=== PATIENT | female | born 1960 | race Caucasian/White ===

== ENCOUNTER → 2016-07-26 14:39 | Outpatient (CLI) | payer MEDICARE ==
[2014-06-06 13:04] VITALS: BMI 25.1
[~2016-07-26 14:39] MED LIST: ACETAMINOPHEN500 M1 PO; BACTRIM DS TABL1 TAB PO; DESYREL50 MG PO; EFFEXOR25 MG PO; ESTRACE1 MG PO; FLEXERIL10 MG PO; LIPITOR20 MG PO; LOPRESSOR25 MG PO; NEURONTIN 300300 MG PO; NORCO 7.5-3251 EACH PO; VALTREX500 MG PO; VISTARIL25 MG PO
== END | disposition home or self-care (01) ==
LOC: D.RAD 14:39
DX: M25.521 Pain in right elbow (principal)

== ENCOUNTER → 2016-08-14 16:42 | Outpatient (CLI) | payer MEDICARE ==
[2014-06-06 13:04] VITALS: BMI 25.1
== END | disposition home or self-care (01) ==
LOC: D.MAMMO 13:15
DX: Z12.31 Encounter for screening mammogram for malignant neoplasm of breast (principal)

== ENCOUNTER → 2017-02-03 14:54 | Outpatient (CLI) | payer MEDICARE ==
[2014-06-06 13:04] VITALS: BMI 25.1
== END | disposition home or self-care (01) ==
LOC: D.MRI 13:30
DX: M25.562 Pain in left knee (principal)

== ENCOUNTER → 2017-12-16 08:42 | Outpatient (CLI) | payer MEDICARE ==
[2014-06-06 13:04] VITALS: BMI 25.1
== END | disposition home or self-care (01) ==
LOC: D.MRI 08:42
DX: M77.11 Lateral epicondylitis, right elbow (principal)

== ENCOUNTER → 2018-04-10 13:37 | Outpatient (CLI) | payer MEDICARE ==
[2014-06-06 13:04] VITALS: BMI 25.1
== END | disposition home or self-care (01) ==
LOC: D.RAD 04-09 10:00
DX: R05 Cough (principal)

== ENCOUNTER → 2018-10-23 10:44 | Outpatient (CLI) | payer OTHER ==
[2014-06-06 13:04] VITALS: BMI 25.1
== END | disposition home or self-care (01) ==
LOC: D.MRI 10:44
PROVIDERS: ATTEND Nurse Practitioner Family
DX: M17.12 Unilateral primary osteoarthritis, left knee (principal)

== ENCOUNTER → 2019-08-02 08:09 | Outpatient (CLI) | payer OTHER ==
[2014-06-06 13:04] VITALS: BMI 25.1
--- NOTE | 2019-08-05 16:48 | ST ---
PATIENT:KAVYA TOWNSEND MEDICAL RECORD: [id number] SEX: F LOCATION:[facility] ORDER #: ADMISSION DATE: 08/02/19 AGE OF PATIENT: 59 REFERRING PHYSICIAN: INTERPRETING PHYSICIAN: MONICO JOHN MD DATE OF SERVICE: 08/02/2019 PROCEDURE: Nuclear stress test. INDICATION: Angina, shortness of breath, hypertension. She was exercised on standard Lexiscan protocol with 25 mCi of sestamibi injected at peak stress, 8 mCi used previously for rest images. FINDINGS: Gated SPECT reveals preserved ejection fraction at 73% with good wall motioning and thickening and brightening throughout all segments. SPECT imaging: Cardiolite was used as myocardial perfusion agent. There is reversibility anteriorly and apically. This includes the basal, mid, apical anterior segments as well as the apex itself. The degree of reversibility is mild. The amount of myocardium involved is moderate. OVERALL IMPRESSION: This is an intermediate risk abnormal nuclear stress test. Reversible ischemia anteriorly and apically suggestive of hemodynamically significant coronary artery disease. TRANSINT:[id number] Voice Confirmation ID: [id number] DOCUMENT ID: [id number] MONICO JOHN MD at 1648 CC: MEGHANN WILLIAMSON DO [id number] DICTATION DATE: 08/03/19 0901 [place]WING [place] BALER: 08/04/19 0653 [facility] CLI 08/02/19 [id number] [place] [address]
--- NOTE | 2019-08-05 16:48 | EC ---
PATIENT:KAVYA TOWNSEND DATE OF SERVICE: 08/02/19 SEX: F MEDICAL RECORD: [id number] DATE OF : 64 LOCATION:[facility] AGE OF PATIENT: 59 ADMISSION DATE: 08/02/19 REFERRING PHYSICIAN: INTERPRETING PHYSICIAN: MONICO ORELLANA MD ECHOCARDIOGRAM REPORT ECHO CHARGES 4 ECHO COMPLETE Date: 08/02/19 CLINICAL DIAGNOSIS: HEART MURMUR//ANGINA ECHOCARDIOGRAPHIC MEASUREMENTS (adult normal given) AC root (d.<3.7cm) 3.4 cm LV Septum d (<1.2 cm> 1.2 cm Valve Excursion 1.6 cm LV Septum (systole) 1.4 cm Left Atria (s.<4.0cm> 3.7 cm LVPW d(<1.2cm) 1.6 cm RV (d.<2.3cm) 3.2 cm LVPW (sytole) 1.8 cm LV diastole(<5.6CM) 5.0 cm MV E-F(>70mm/sec) cm LV systole 3.5 cm LVOT Diameter 1.6 cm MV exc.(>10mm) 1.8 cm Est.ejection fraction (50-75%) % DOPPLER: LVIT cm/sec A 86.0 cm/sec E 64.0 cm/sec LA cm/sec RVSP 27 mmHg LVOT 97 cm/sec AOP1/2T m/s Asc. Ao 127 cm/sec RVOT 77 cm/sec RA cm/sec PA 110 cm/sec AV Gradient Peak 6.43 mmHg AV Mean 3.15 mmHg AV Area 1.6 cm MV Gradient Peak 2.80 mmHg MV Mean 1.21 mmHg MV Area cm COMMENTS: Clinical Dermatologist: 2 DYLON ESPITIA Cleaning Custodian: 1 Dr. Orellana TAPE# PACS Pericardial Effusion N DATE OF SERVICE: FINDINGS: 1. Left ventricular chamber size is within normal limits. Left ventricular systolic function is normal at 60%. 2. Left atrium, right atrium, and right ventricle chamber sizes are within normal limits. 3. Valvular structures have normal structure and motion. 4. Doppler interrogation reveals mild mitral regurgitation, mild tricuspid regurgitation, no other valvular insufficiency or stenosis. Pulmonary systolic ECHOCARDIOGRAM REPORT [id number] KAVYA TOWNSEND pressure estimated at 27 mmHg. 5. No evidence of pericardial effusion or left ventricular thrombus. TRANSINT:[id number] Voice Confirmation ID: [id number] DOCUMENT ID: [id number] MONICO ORELLANA MD at 1648 CC: [id number] DICTATION DATE: 08/02/19 1335 [employer] ADMINISTRATOR: 08/02/19 2309 [facility] CLI 08/02/19 [id number] [place] [id number]
== END | disposition home or self-care (01) ==
LOC: D.HCCARDIO 08:09 → D.HCCECHO 09:00
PROVIDERS: ATTEND Internal Medicine Interventional Cardiology
DX: R01.1 Cardiac murmur, unspecified (principal); I20.9 Angina pectoris, unspecified

== ENCOUNTER 2019-08-11 08:10 | Outpatient (CLI) | payer OTHER ==
[~2019-08-11] VITALS: Ht 162.6 cm; Wt 60.5 kg
--- NOTE | ~2019-08-11 | OP ---
PATIENT NAME: KAVYA TOWNSEND MEDICAL RECORD: [id number] :64 LOCATION:[facility] ADMISSION DATE: SURGEON: MONICO JOHN MD DATE OF OPERATION: 08/11/2019 PROCEDURES: 1. PTCA stent LAD. 2. Left heart catheterization. 3. Selective coronary angiography. 4. Left ventriculogram. 5. Aortofemoral runoff. 6. Abdominal aortography. INDICATION: Angina, coronary artery disease, leg pain compatible with claudication. PROCEDURE IN DETAIL: After informed consent was obtained and after a detailed description of risks, benefits as well as alternative therapies, the patient elected to proceed with angiogram and angioplasty. The left femoral area was prepped and draped in normal sterile fashion. Left femoral artery was cannulated via modified Seldinger technique with placement of 5-Dominican sheath. All catheters exchanged through this sheath. FINDINGS: Left ventriculogram was performed in standard 30-degree [place] view, reveals good cardiac wall motion throughout all segments. Overall ejection fraction estimated at 60%. Abdominal aortography was performed. The catheter was pulled down for aortofemoral runoff. Abdominal aortography reveals no significant abdominal aortic disease, no dissection or aneurysmal formation. RIGHT LEG: A. Iliac: The common internal and external iliacs have mild irregularities, but no flow-limiting stenosis. B. Femoral system: The common superficial and deep femoral have mild irregularities, but no flow-limiting stenosis. C. Popliteal and infrapopliteal vessels are widely patent with good 3-vessel runoff to the foot. LEFT LEG: A. Iliac: The common internal and external iliacs have mild irregularities, but no flow-limiting stenosis. B. Femoral system: The common superficial and deep femoral have mild irregularities, but no flow-limiting stenosis. C. Popliteal and infrapopliteal vessels are widely patent with good 3-vessel runoff to the foot. SELECTIVE CORONARY ANGIOGRAPHY: 1. Left main is with no significant angiographic disease. 2. Left anterior descending has 75-80% stenosis in the mid vessel and that correlates with perfusion defect from nuclear stress testing. 3. Left circumflex has mild irregularities, but no flow-limiting stenosis. 4. Right coronary has mild irregularities, but no flow-limiting stenosis. PTCA STENT OF THE LAD: The stent used was a 2.75 x 14 mm Integrity. Result was 0% residual stenosis. OPERATIVE REPORT [id number] KAVYA TOWNSEND OVERALL IMPRESSION: Successful percutaneous transluminal coronary angioplasty stent of the left anterior descending going from 75% to 80% initial stenosis, which correlates with the defect on nuclear stress test to 0% residual stenosis. TRANSINT:[id number] Voice Confirmation ID: [id number] DOCUMENT ID: [id number] MONICO JOHN MD CC: [id number] DICTATION DATE: 08/11/19 1059 [employer] INSPECTOR: 08/11/19 1318 [facility] [address] [id number]
--- NOTE | ~2019-08-11 | HEMODYNAMI ---
PATIENT:KAVYA TOWNSEND MEDICAL RECORD: [id number] : 64 LOCATION:[facility] ADMISSION DATE: 08/11/19 Generatedon:08/11/201910:57 Patient name: KAVYA TOWNSEND Patient #: [id number] SSN: [id number] : 1960 Date of study: 08/11/2019 Page: Of Hemodynamic Procedure Report Patient Data Patient Demographics Procedure consent was obtained First Name: KAVYA Gender: Female Last Name: CARY : 1960 [facility] Initial: J Age: 59 year(s) Patient #: [id number] Race: SSN: [id number] Additional ID: [id number] Contact details [address]: [address] [place] [address] State: [place] City: [place] Zip code: [address] Admission Admission Data Admission Date: 08/11/2019 Admission Time: 8:10 Arrival Date: 08/11/2019 Arrival Time: 10:00 Insurance Payor: Private health insurance [facility] #: [id number] Lab Results Lab Result Date: 08/11/2019 Lab Result Time: 0:00 Biochemistry Name Units Result Min Max BUN mg/dl 11 --(-*--)-- 7 18 Creatinine mg/dl 0.7 --(*---)-- 0.6 1.3 eGFR ml/min 90 --(*---)-- 90 120 NONAFRICAN CBC Name Units Result Min Max Hemoglobin g/dl 13 -*(----)-- 13.5 17.5 Procedure Procedure Types Cath Procedure Diagnostic Procedure C [facility] w/Coronaries Sedation Charges Moderate Sedation up to 15 minutes PCI Procedure Coronary Stent Coronary Stent Initial Hemochron ACT Test Peripheral Cath Diagnostic Procedure [employer]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 Procedures AFRO (Diagnostic) Procedure Description Procedure Date Procedure Date: 08/11/2019 Procedure Start Time: 10:40 Procedure End Time: 10:52 Procedure Staff Name Function Noah Orellana MD Performing Physician Padmini Madsen RT Monitor Jyothi Miller RT Scrub Steven Montes RN Nurse Procedure Data Cath Procedure Fluoroscopy Diagnostic fluoroscopy Total fluoroscopy Time: 2.5 time: 2.5 min min Diagnostic fluoroscopy Total fluoroscopy dose: 304 dose: 304 mGy mGy Contrast Material Contrast Material Type Amount (ml) Isovue 300 102 Entry Location Entry Primary Successful Side Size Upsize Upsize Entry Closure Succes sful Closure Location (Fr) 1 (Fr) 2 (Fr) Remarks Device Remarks Femoral Left 5 Fr Exoseal artery Estimated blood loss: 5 ml Diagnostic catheters Device Type Used For End Catheter Placement MULTIPACK Pigtail 5 Fr Multi-vessel catheter Angiography MULTIPACK JL 4.0 5Fr Left Coronary catheter Angiography MULTIPACK 3DRC 5Fr Right Coronary catheter Angiography Procedure Complications No complications Procedure Medications Medication Administration Route Dosage Oxygen etCO2 Nasal cannula 2 l/min Lidocaine 2% added to field 20 Heparin Flush Bag added to field 2 bags (1000units/500ml NS) 0.9% NaCl I.V. 100 ml/hr Versed I.V. 2 mg Fentanyl I.V. 100 mcg Versed I.V. 2 mg Fentanyl I.V. 100 mcg Heparin Bolus I.V. 4000 units Integrilin (Bolus I.V. 5.6 ml 2mg/ml) Nitroglycerin IC/IA I.C. 100 mcg Versed I.V. 2 mg Fentanyl I.V. 100 mcg Versed I.V. 1 mg Plavix P.O. 600 mg Hemodynamics Rest HGB: 13 (g/dl) Heart Rate: 82 (bpm) Pressure Samples Time Site Value (mmHg) Purpose Heart Use Rate(bpm) 10:41 LV 42/-2,0 Snapshot 78 Snapshots Pre Cath Intra NCS Post Cath Vital Signs Time Heart Resp SPO2 etCO2 NIBP (mmHg) Rhythm Pain Sedation Rate (ipm) (%) (mmHg) Status Level (bpm) 10:16:46 83 16 97 0 168/108(145) NSR 0 (11) 10(A) , No pain 10:20:58 79 16 98 15 161/102(142) NSR 0 (11) 10(A) , No pain 10:25:08 84 34 96 30 166/95(136) NSR 0 (11) 10(A) , No pain 10:29:20 81 19 97 29.9 158/97(131) NSR 0 (11) 10(A) , No pain 10:33:32 82 14 95 26.2 148/106(121) NSR 0 (11) 10(A) , No pain 10:37:39 81 19 97 27.7 147/86(125) NSR 0 (11) 10(A) , No pain 10:41:47 78 15 93 9.7 146/83(104) NSR 0 (11) 10(A) , No pain 10:45:53 90 16 96 0.7 140/92(111) NSR 0 (11) 10(A) , No pain 10:49:55 92 18 97 33 153/99(133) NSR 0 (11) 10(A) , No pain Medications Time Medication Route Dose Verified Delivered Reason Notes Effectiveness by by 10:17:31 Oxygen etCO2 2 Noah Rajwinderie used for Nasal l/min Esteban Montes RN procedure cannula 10:17:38 Lidocaine 2% added 20ml Noah Zamora for local to vial Esteban Orellana MD anesthetic field 10:18:58 Heparin Flush added 2 Noah Noah used for Bag to bags Esteban Orellana MD procedure (1000units/500ml field NS) 10:19:06 0.9% NaCl I.V. 100 Noah Harris Per physician ml/hr Esteban Montes RN 10:40:07 Versed I.V. 2 mg Noah Purdyie for sedation Esteban Montes RN 10:40:13 Fentanyl I.V. 100 Noah Buffie for sedation mcg Esteban Montes RN 10:43:56 Versed I.V. 2 mg Noah Purdyie for sedation Esteban Montes RN 10:44:00 Fentanyl I.V. 100 Noah Purdyie for sedation mcg Esteban Montes RN 10:46:41 Heparin Bolus I.V. 4000 Noah Harris for verif ied units Esteban Montes RN anticoagulation with dr orellana 10:47:18 Integrilin I.V. 5.6 Noah Harris for waste d (Bolus 2mg/ml) ml Esteban Montes RN antiplatelet 4.4 ml therapy of vial 10:49:13 Versed I.V. 2 mg Noah Purdyie for sedation Esteban Montes RN 10:49:16 Fentanyl I.V. 100 Noah Purdyie for sedation mcg Esteban Montes RN 10:50:31 Nitroglycerin I.C. 100 Noah Harris for IC/IA mcg Esteban Montes RN vasodilation 10:53:37 Versed I.V. 1 mg Noah Harris for sedation Esteban Montes RN 10:55:26 Plavix P.O. 600 Noah Harris for mg Esteban Montes RN antiplatelet therapy Procedure Log Time Note 10:00:21 Jyothi Miller RT(R) sent for patient. Start room use. 10:07:10 Diagnostic Cath Status : Elective 10:08:24 Informed consent obtained and on chart 10:10:20 Arrival Date: 08/11/2019 10:00:00 AM 10:10:41 Insurance Payor : Private health insurance 10:15:16 Lab Result : Hemoglobin 13 g/dl 10:15:16 Lab Result : eGFR NONAFRICAN 90 ml/min 10:15:16 Lab Result : BUN 11 mg/dl 10:15:16 Lab Result : Creatinine 0.7 mg/dl 10:15:29 Time tracking: Regular hours (M-F 7:00 - 5:00) 10:15:33 Plan of Care:Hemodynamics will remain stable., Cardiac rhythm will remain stable., Comfort level will be maintained., Respiratory function will remain adequate., Patient/ family verbilizes understanding of procedure., Procedure tolerated without complication., Recovers from procedure without complications.. 10:15:39 Patient received from Pre/Post Procedure Room to CCL 2 Alert and oriented. Tansferred to table in Supine position. 10:15:40 Warm blankets applied, and george hugger turned on for patient comfort. 10:15:40 Correct patient and procedure confirmed by team. 10:15:41 ECG and BP/O2 sat monitors applied to patient. 10:15:43 Vital chart was started 10:15:45 Baseline sample Acquired. 10:15:47 Rhythm: sinus rhythm 10:15:49 Full Disclosure recording started 10:15:52 H&P Date Dictated: 08/11/2019 Within 30 days and on chart., H&P Addendum completed by physician on day of procedure. (MUST COMPLETE FOR ALL OUTPATIENTS). 10:15:53 Pre-procedure instructions explained to patient. 10:15:54 Pre-op teaching completed and patient verbalized understanding. 10:15:56 Family in waiting room. 10:15:58 Patient NPO since Midnight. 10:15:59 Is the patient allergic to Iodine/contrast media? Yes. 10:16:00 Was the patient premedicated? Yes 10:17:31 Oxygen 2 l/min etCO2 Nasal cannula was administered by Steven Montes RN; used for procedure; Verbal order read back and verified. 10:17:38 Lidocaine 2% 20ml vial added to field was administered by Noah Orellana MD; for local anesthetic; Verbal order read back and verified. 10:17:42 Patient diabetic? No. 10:18:27 Is patient on blood thinner?No 10:18:35 Previous problem with sedation/anesthesia? No ? 10:18:36 Snore? Yes 10:18:37 Sleep apnea? No 10:18:38 Deviated septum? No 10:18:38 Opens mouth fully? Yes 10:18:40 Sticks out tongue? Yes 10:18:48 Airway obstruction? Yes EMPHYSEMA 10:18:51 Dentures? No ? 10:18:54 Pre procedure: right dorsailis pedis pulse 2+ Normal; easily identifiable; not easily obliterated 10:18:57 Pre procedure: left dorsailis pedis pulse 2+ Normal; easily identifiable; not easily obliterated 10:18:58 Heparin Flush Bag (1000units/500ml NS) 2 bags added to field was administered by Noah Orellana MD; used for procedure; Verbal order read back and verified. 10:19:01 Patient pain scale 0/10 ?. 10:19:06 0.9% NaCl 100 ml/hr I.V. was administered by Steven Montes RN; Per physician; Verbal order read back and verified. 10:19:08 IV patent on arrival in left forearm with 0.9% NaCl at [facility]. 10:19:11 Lab results completed and on chart. 10:19:24 Stress Test: yes; abnormal ANTEROAPICAL 10:21:34 Risk of Mortality: 0.2 10:21:37 Risk of blood transfusion: 3.1 10:21:40 Risk of JOSE ELIAS: 0.9 10:21:45 Bilateral groins area was prepped with chlora-prep and draped in sterile fashion 10:21:45 Alarms reviewed by R. N. 10:21:46 Sharps counted by scrub and verified by R.N. 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 10:22:04 Bag Decanter (2002S) opened to sterile field. 10:22:04 Medline Cath Pack ([id number]) opened to sterile field. 10:22:05 ACIST Hand Control (61243) opened to sterile field. 10:22:06 ACIST Manifold (84470) opened to sterile field. 10:22:06 DIAGNOSTIC Multipack 5Fr catheter set ([id number]) opened to sterile field. 10:22:07 Tegaderm 4 x 4 (1626W) opened to sterile field. 10:22:08 SHEATH 5FR [employer] (BOM544) opened to sterile field. 10:22:08 EMERALD Guide Wire (443-663) opened to sterile field. 10:31:49 1) 90+ Normal kidney functon but urine findings or structural abnormalities or genetic trait point to kidney disease. 10:31:52 Maximum allowable contrast dose (3.7 X eGFR X 0.75)249 ml. 10:39:42 Physician arrived 10:39:42 --------ALL STOP TIME OUT------ 10:39:43 Final Timeout: patient, procedure, and site verified with staff and physician. All members of the team are in agreement. 10:39:45 Bilateral groins site verified by team. 10:39:48 Fire Safety Assessment: A--An alcohol-based skin anteseptic being used preoperatively., C--Open oxygen or nitrous oxide is being used., D--An ESU, laser, or fiber-optic light is being used. 10:39:52 Physical assessment completed. ASA score P 2 - A patient with mild systemic disease as per Noah Orellana MD. 10:39:59 Sedation plan: IV Moderate Sedation Medication:Versed, Fentanyl 10:40:07 Versed 2 mg I.V. was administered by Steven Montes RN; for sedation; Verbal order read back and verified. 10:40:07 Procedure started. 10:40:11 Local anesthetic to left femerol artery with Lidocaine 2% by Noah Orellana MD.INITIAL ACCESS ONLY 10:40:13 Fentanyl 100 mcg I.V. was administered by Steven Montes RN; for sedation; Verbal order read back and verified. 10:40:18 A 5 Fr sheath was inserted into the Left Femoral artery 10:40:25 A MULTIPACK Pigtail 5 Fr catheter was advanced over the wire and used for Multi-vessel Angiography. 10:41:45 LV hemodynamics recorded. 10:41:47 LV gram done using SMALLWOOD 10:41:51 Injector settings: Ml/sec: 5, Volume: 15, 10:41:56 EF : 60 % 10:42:19 Abdominal angiogram w/ runoff was performed. 10:42:26 Injector settings: Ml/sec: 10, Volume: 20, 10:42:56 Catheter removed. 10:43:04 A MULTIPACK JL 4.0 5Fr catheter was advanced over the wire and used for Left Coronary Angiography. 10:43:50 LCA angiography performed. 10:43:53 Injector settings: Ml/sec: 3, Volume: 6, 10:43:56 Versed 2 mg I.V. was administered by Steven Montes RN; for sedation; Verbal order read back and verified. 10:44:00 Fentanyl 100 mcg I.V. was administered by Setven Montes RN; for sedation; Verbal order read back and verified. 10:44:34 Catheter removed. 10:44:42 A MULTIPACK 3DRC 5Fr catheter was advanced over the wire and used for Right Coronary Angiography. 10:44:47 RCA angiography performed. 10:45:03 INFLATOR Merit BasixCompak (PU7807) opened to sterile field. 10:45:04 CHOICE PT Extra Support 182cm wire ([id number]) opened to sterile field. 10:45:15 Injector settings: Ml/sec: 3, Volume: 6, 10:45:17 Catheter removed. 10:45:18 Proceeding to intervention. 10:45:41 ACCDominant side:Right 10:46:10 GUIDE 5FR EBU 3.5 catheter ([id number]) opened to sterile field. 10:46:16 ACC Pre-intervention ELAINE Flow is 3. 10:46:23 Pre PCI Site: Yuhaaviatam mLAD has 80% stenosis. 10:46:29 5 Fr EBU 3.5 guide catheter was inserted over the wire 10:46:35 CHO;ICE PT wire advanced. 10:46:41 Heparin Bolus 4000 units I.V. was administered by Steven Montes RN; for anticoagulation; verified with dr orellana Verbal order read back and verified. 10:47:18 Integrilin (Bolus 2mg/ml) 5.6 ml I.V. was administered by Steven Montes RN; for antiplatelet therapy; wasted 4.4 ml of vial Verbal order read back and verified. 10:48:18 Place stent Inflation Number: 1 A INTEGRITY RX 2.75 x 14 stent ([id number]) was prepped and advanced across the Mid LAD 80. The stent was deployed at 15 CRISTA for 0:10 (min:sec) 0. 10:48:39 Stent catheter was removed intact over wire. 10:48:39 Wire removed. 10:48:40 Guide catheter removed. 10:48:56 ACC Post-intervention ELAINE Flow is 3. 10:49:04 Post PCI Site: Yuhaaviatam mLAD has 0% stenosis. 10:49:13 Versed 2 mg I.V. was administered by Steven Montes RN; for sedation; Verbal order read back and verified. 10:49:16 Fentanyl 100 mcg I.V. was administered by Steven Montes RN; for sedation; Verbal order read back and verified. 10:49:40 EXOSEAL 5Fr (EX500) opened to sterile field. 10:50:31 Nitroglycerin IC/IA 100 mcg I.C. was administered by Steven Montes RN; for vasodilation; Verbal order read back and verified. 10:50:35 Wire removed. 10:50:35 Guide catheter removed. 10:51:32 Sheath removed intact; hemostasis achieved with Exoseal to the Left Femoral artery. 10:51:34 Procedure ended.(Physican Out) 10:51:44 Fluoroscopy time 02.50 minutes. 10:51:48 Flurop Dose total: 304 10:51:48 Fluoroscopy dose: 304 mGy 10:51:53 Dose Area Product 66499 mGy/cm. 10:51:57 Contrast amount:Isovue 300 102ml. 10:51:59 Maximum allowable dose exceeded? No. 10:52:00 Sharps counted by scrub and verified by R.N. 10:52:02 Insertion/operative site no bleeding no hematoma. 10:52:05 Post-op/insertion site Left Femoral artery dressed using a 4 x 4 and Tegaderm. 10:52:06 Post Procedure Pulses reassessed and unchanged 10:52:08 Post procedure rhythm: unchanged. 10:52:10 Estimated blood loss: 5 ml 10:52:12 Post procedure instruction explained to patient.Patient verbalizes understanding. 10:52:12 Patient needs reinforcement of post procedure teaching. 10:52:13 Procedure and supply charges have been captured, reviewed, submitted and are correct. 10:52:17 Procedure Complication : No complications 10:52:20 Vital chart was stopped 10:52:24 [facility] Findings: MVD- PCI performed (see procedure note) 10:52:25 Operative report dictated upon procedure completion. 10:52:26 See physician's report for complete and final results. 10:52:28 Report given to Pre/Post Procedure Room. 10:52:30 Patient transfered to Pre/Post Procedure Room with Stretcher. 10:52:32 Procedure ended. 10:52:32 Full Disclosure recording stopped 10:52:58 ACC-PCI Only Patient was given prescriptions, or instructed by Noah Orellana MD to start/continue the following medications upon discharge: Plavix 10:53:00 End room use (Document Last) 10:53:37 Versed 1 mg I.V. was administered by Steven Montes RN; for sedation; Verbal order read back and verified. 10:55:26 Plavix 600 mg P.O. was administered by Steven Montes RN; for antiplatelet therapy; Verbal order read back and verified. 10:56:16 ACT drawn and resulted at 373 seconds. (normal therapeutic range 180-240 seconds). Intervention Summary Intervention Notes Time ActionType Lesion and Equipment Action# Pressure Duration Attributes Used 10:48:18 Place stent Mid LAD INTEGRITY RX 1 15 00:10 2.75 x 14 stent ([id number]) Device Usage Item Name Manufacture Quantity Catalog Number Hospital Part Current Mini mal Lot# / Charge Number Stock Stock Serial# Code ACIST Acist 1 27480 019166 061238 748046 20 Syringe Medical (95258) Systems Inc Bag Decanter Microtek 1 995087 80903 970913 5 (2002S) Medical Inc. Medline Cath Medline 1 [id number] 602950 42675 079973 5 Pack ([id number]) ACIST Hand Acist 1 63171 375617 520285 312881 5 Control Medical (60769) Systems Inc ACIST Acist 1 19738 158416 978068 122483 5 Manifold Medical (98054) Systems Inc DIAGNOSTIC Cardinal 1 [id number] 398525 53219 352961 30 MultipnCircle [employer] Security 5Fr catheter set (WZ0648) Tegaderm 4 x 3M 1 1626W 088153 821161 392596 5 4 (1626W) SHEATH 5FR Terumo 1 [id number] 807999 209104 585659 5 [employer] (YMO718) EMERALD Cardinal 1 481-455 481777 550189 575320 5 Guide Wire [facility] (502-670) MULTIPACK Cardinal 1 780611 5 Pigtail 5 Fr Health catheter MULTIPACK JL Cardinal 1 916215 5 4.0 5Fr [facility] catheter MULTIPACK Cardinal 1 510009 5 3DRC 5Fr [facility] catheter INFLATOR [facility] 1 [id number] 910680 060863 096489 15 ChipVision Design [facility] BasixCompak (UH0817) CHOICE PT Norman 1 [id number] 998916 233905 450830 5 Extra Scientific Support 182cm wire ([id number]) GUIDE 5FR Medtronic 1 [id number] 664819 527730 778086 1 EBU 3.5 catheter ([id number]) INTEGRITY RX Medtronic 1 [id number] 176931 509307 387840 5 [id number] 2.75 x 14 stent ([id number]) EXOSEAL 5Fr Cardinal 1 EX500 690208 492697 990919 10 (EX500) Health Signature Audit [place] Stage Time Signature Unsigned Intra-Procedure 08/11/2019 Padmini Madsen 10:55:47 AM RT(R) Intra-Procedure 08/11/2019 Steven Montes RN 10:56:27 AM Intra-Procedure 08/11/2019 Noah Orellana 10:57:20 AM Signatures Performing Physician : Signature : Noah Orellana MD Date : Time : Monitor : Padmini Cale RT Signature : Date : Time : Nurse : Buffie Montes RN Signature : Date : Time : [address] [place] [address]
[~2019-08-11 08:10] MED LIST changes: -DESYREL50 MG PO; +TRAZODONE HCL150 MG PO
[2019-08-11] MEDS ORDERED: EFFEXOR XR150 MG PO (08:36)
[2019-08-11] MEDS ORDERED: PREDNISONE20 MG PO (08:38)
[2019-08-11] MEDS ORDERED: ZANAFLEX4 MG PO (08:39)
[2019-08-11] MEDS ORDERED: TYLENOL W/CODEI1 TAB PO (08:39)
[2019-08-11] MEDS ORDERED: VALTREX500 MG PO (08:40)
[2019-08-11] MEDS ORDERED: CARTIA XT240 MG PO (08:41)
[2019-08-11] MEDS ORDERED: TRAZODONE HCL150 MG PO (08:42)
[2019-08-11] MEDS ORDERED: OMEPRAZOLE20 M1 PO (08:43)
[2019-08-11] MEDS ORDERED: DICLOFENAC SODI50 MG PO (08:46)
[2019-08-11] MEDS ORDERED: ZETIA10 MG PO (08:46)
[2019-08-11 09:03] VITALS: BP 148/93; Ht 162.6 cm; Wt 60.5 kg
[2019-08-11 09:31] LABS: BASOPHILS 0.3 % (0-2); EOSINOPHILS 0 % (0-7); HEMATOCRIT 38.7 % (36.0-48.0); IMMATURE GRANULOCYTES 0.1 % (0-5); MCH 30.4 pg (26.0-34.0); MCHC 33.6 g/dL (31.0-37.0); MCV 90.6 fL (80.0-100.0); MONOCYTES 0.7 % (2-11); NEUTROPHILS 87.9 % (40-80); PLATELET COUNT 326 10x3/uL (130-400); RBC 4.27 10x6/uL (4.00-5.40); RDW 13.7 % (11.5-14.5); WBC 7.2 10x3/uL (4.8-10.8)
[2019-08-11 09:32] LABS: ALT (SGPT) 40 U/L (10-68); CALC OSMOLALITY 273 mosm/kg (275-300); CALCIUM 8.5 mg/dL (8.5-10.1); CARBON DIOXIDE 23.9 mmol/L (21.0-32.0); CHLORIDE - SERUM 102 mmol/L (98-107); CHOL - HDL RATIO 4.9 ratio (2.3-4.1); CHOLESTEROL, TOTAL 276 mg/dL (0-200); CREATININE - SERUM 0.7 mg/dL (0.6-1.3); GLUCOSE 148 mg/dL (74-106); HDL CHOLESTEROL 56 mg/dL (32-96); LDL CHOLESTEROL 201 mg/dL (0-100); LDL-HDL RATIO 3.6 ratio (1.5-3.5); POTASSIUM - SERUM 4.1 mmol/L (3.5-5.1); SODIUM 136 mmol/L (136-145); TRIGLYCERIDE 99 mg/dL (30-200); UREA NITROGEN 11 mg/dL (7-18); eGFR NON AFRICAN AMERICAN > 90 mL/min (90-120)
[2019-08-11] MEDS ORDERED: BAYER CHEWABLE81 MG PO (11:13)
[2019-08-11] MEDS ORDERED: PLAVIX75 MG PO (11:13)
== END 2019-08-11 14:55 | disposition home or self-care (01) ==
LOC: D.CATH 08:10
PROVIDERS: ATTEND Internal Medicine Interventional Cardiology
DX: I25.119 Atherosclerotic heart disease of native coronary artery with unspecified angina pectoris (principal); I10 Essential (primary) hypertension; R06.09 Other forms of dyspnea; R01.1 Cardiac murmur, unspecified; R07.9 Chest pain, unspecified; Z72.0 Tobacco use; M79.606 Pain in leg, unspecified

== ENCOUNTER → 2020-10-03 08:01 | Outpatient (CLI) | payer OTHER ==
[2019-08-11 09:03] VITALS: BMI 22.8
[~2020-10-03 08:01] MED LIST changes: +BAYER CHEWABLE81 MG PO; +CARTIA XT240 MG PO; +DICLOFENAC SODI50 MG PO; +EFFEXOR XR150 MG PO; +OMEPRAZOLE20 M1 PO; +PLAVIX75 MG PO; +PREDNISONE20 MG PO; +TYLENOL W/CODEI1 TAB PO; +ZANAFLEX4 MG PO; +ZETIA10 MG PO
== END | disposition home or self-care (01) ==
LOC: D.MRI 08:00
PROVIDERS: ATTEND Clinical Nurse Specialist Family Health
DX: M25.531 Pain in right wrist (principal)